=== PATIENT | male | born 1965 | race Native Hawaiian/Other Pacific Islander ===

== ENCOUNTER 2017-01-09 11:25 | Emergency (ER) | payer SELFPAY ==
[~2017-01-09] VITALS: Ht 180.3 cm; Wt 86.0 kg
[2017-01-09 11:26] VITALS: BP 133/71; PULSE 71; RESP 15; TEMP 97.6; O2SAT 97
--- NOTE | 2017-01-09 11:34 | PD ---
Physical Exam Date Seen by Provider: Jan 09, 2017 Time Seen by Provider: 11:30 Narrative 51 yowm C/O LOWER PUBIC PAIN, NAUSEA, PASSING BLOOD CLOTS WITH CRAMPS THIS AM. PT HAS HAD IT 4 TIMES OVER THE PAST SEVERAL YRS BUT NEVER SEEN. . PAIN 01/02. VS REVIEWED WAITING FOR BED PLACEMENT Data Data Last Documented VS Vital Signs Date Time Temp Pulse Resp B/P Pulse Ox O2 Delivery O2 Flow Rate FiO2 01/09/17 11:26 97.6 71 15 133/71 97 MDM Supervised Visit with JEFF: No Scripts No Active Prescriptions or Reported Meds Rodrigo Stuart Jan 09, 2017 11:33
[2017-01-09] MEDS ORDERED: SODIUM CHLORIDE 0.9% FLUSH 10 ML FLUSH IV FLUSH PRN (11:45)
[2017-01-09 12:14] LABS: AUTOMATED NEUTROPHIL # 14.1 TH/MM3 (1.8-7.7); BASOPHIL % 0.3 % (0.0-2.0); EOSINOPHIL % 0.1 % (0.0-4.0); HEMATOCRIT 50.5 % (39.0-51.0); HEMO FLAGS DIFF FINAL; MEAN CELL VOLUME 93.7 FL (80.0-100.0); MEAN CORPUSCULAR HEMOGLOBIN 31.4 PG (27.0-34.0); MEAN CORPUSCULAR HGB CONC 33.5 % (32.0-36.0); MONO % 4.8 % (0.0-8.0); NEUT % 88.8 % (16.0-70.0); PLATELET COUNT 252 TH/MM3 (150-450); RED BLOOD COUNT 5.39 MIL/MM3 (4.50-5.90); RED CELL DISTRIBUTION WIDTH 13.7 % (11.6-17.2); WHITE BLOOD COUNT 15.9 TH/MM3 (4.0-11.0)
[2017-01-09 12:21] LABS: ANION GAP 8 MEQ/L (5-15); APTT (PATIENT) 25.5 SEC (24.3-30.1); AST (GOT) 18 U/L (15-37); BICARBONATE 26.1 MEQ/L (21.0-32.0); BLOOD UREA NITROGEN 15 MG/DL (7-18); CHLORIDE 102 MEQ/L (98-107); GLOMERULAR FILTRATION RATE 70 ML/MIN (>89); INTERNATIONAL NORMALIZED RATIO 0.9 RATIO; POTASSIUM 4.4 MEQ/L (3.5-5.1); PROTHROMBIN TIME - PATIENT 10.1 SEC (9.8-11.6); SODIUM (NA) 136 MEQ/L (136-145)
[2017-01-09 12:24] LABS: ALKALINE PHOSPHATASE 75 U/L (45-117); ALT (GPT) 26 U/L (12-78); TOTAL BILIRUBIN ADULT 0.9 MG/DL (0.2-1.0)
--- NOTE | 2017-01-09 12:56 | PD ---
HPI Chief Complaint: GI Complaint Time Seen by Provider: 12:51 Travel History International Travel<30 days: No Contact w/Intl Traveler<30days: No Traveled to known affect area: No History of Present Illness HPI 51-year-old male presents to the emergency department for evaluation of lower abdominal pain, gross blood in stool with blood clots, single episode. He states that he felt fine yesterday. However, last night, he felt like he had to have a bowel movement. He says he was sitting on the toilet with sweat dripping from him. He states at some point, he had a syncopal episode and woke up on the floor with pain to his forehead. He states that he went back to bed. He woke up a few more times to try to have a bowel movement. He would get a little bit out each time. However, this morning, he went to the bathroom and had gross blood. He states he has had a bowel movement since with blood as well and blood clots. He reports lower abdominal pain. No fevers or chills. No chest pain. He states he is nauseated, but denies vomiting. He states he has had issues similar to this in the past, but has never had blood in his stool. Patient has never been seen for this in the past. Patient with history of hypertension, but is not on any prescribed medications. He reports history of hernia surgery in the past. PFSH Past Medical History Cardiovascular Problems: Yes Diminished Hearing: No Hypertension: Yes (15 YEARS AGO BUT PT STATES DOES NOT TAKE MED) Tetanus Vaccination: < 5 Years Influenza Vaccination: No Past Surgical History Abdominal Surgery: Yes (HERNIA REPAIR) Social History Alcohol Use: Yes (OCASSIONALLY) Tobacco Use: No (QUIT 25 YEARS AGO) Substance Use: Yes ([employer], [place] OCASSIONALLY) Allergies-Medications (Allergen,Severity, Reaction): Coded Allergies: No Known Allergies (Unverified , 01/09/17) Reported Meds & Prescriptions Reported Meds & Active Scripts Active Flagyl (Metronidazole) 500 Mg Tab 500 Mg PO TID 10 Days Cipro (Ciprofloxacin HCl) 500 Mg Tab 500 Mg PO BID 10 Days Lortab (Hydrocodone-Acetaminophen) 5-325 Mg Tab 1 Tab PO Q6H PRN Review of Systems Except as stated in HPI: all other systems reviewed are Neg Physical Exam Narrative GENERAL: Well-nourished, well-developed male patient afebrile., SKIN: Focused skin assessment warm/dry. HEAD: Normocephalic. Atraumatic. ENT: Mucosa pink and moist. No erythema or exudates. No uvular edema. No uvular , palatal, or tonsillar deviation. Airway patent. Nasal turbinates appear normal without nasal blood, purulent drainage or septal hematoma. Bilateral tympanic membranes are clear without erythema or perforation. EYES: No scleral icterus. No injection or drainage. NECK: Supple, trachea midline. No JVD or lymphadenopathy. CARDIOVASCULAR: Regular rate and rhythm without murmurs, gallops, or rubs. RESPIRATORY: Breath sounds equal bilaterally. No accessory muscle use. Lungs sounds are clear to auscultation. GASTROINTESTINAL: Abdomen soft and nondistended. Mild tenderness over lower abdomen. MUSCULOSKELETAL: No cyanosis, or edema. BACK: Nontender without obvious deformity. No CVA tenderness. Data Data Last Documented VS Vital Signs Date Time Temp Pulse Resp B/P Pulse Ox O2 Delivery O2 Flow Rate FiO2 01/09/17 16:01 97.9 76 16 120/78 99 01/09/17 14:57 Room Air Orders Complete Blood Count With Diff (01/09/17 11:40) Comprehensive Metabolic Panel (01/09/17 11:40) Prothrombin Time / Inr (Pt) (01/09/17 11:40) Act Partial Throm Time (Ptt) (01/09/17 11:40) Ua Includes Microscopic (01/09/17 11:40) Iv Access Insert/Monitor (01/09/17 11:40) Sodium Chloride 0.9% Flush (Ns Flush) (01/09/17 11:45) Morphine Inj (Morphine Inj) (01/09/17 13:00) Electrocardiogram (01/09/17 ) Creatine Kinase (Cpk) (01/09/17 12:48) Troponin I (01/09/17 12:48) Ct Abd/Pel W Iv Contrast(Rout) (01/09/17 ) Sodium Chlor 0.9% 1000 Ml Inj (Ns 1000 M (01/09/17 13:00) Ondansetron Inj (Zofran Inj) (01/09/17 13:00) Iohexol 350 Inj (Omnipaque 350 Inj) (01/09/17 14:26) Labs Laboratory Tests Test 01/09/17 01/09/17 11:55 15:00 White Blood Count 15.9 TH/MM3 Red Blood Count 5.39 MIL/MM3 Hemoglobin 16.9 GM/DL Hematocrit 50.5 % Mean Corpuscular Volume 93.7 FL Mean Corpuscular Hemoglobin 31.4 PG Mean Corpuscular Hemoglobin 33.5 % Concent Red Cell Distribution Width 13.7 % Platelet Count 252 TH/MM3 Mean Platelet Volume 8.7 FL Neutrophils (%) (Auto) 88.8 % Lymphocytes (%) (Auto) 6.0 % Monocytes (%) (Auto) 4.8 % Eosinophils (%) (Auto) 0.1 % Basophils (%) (Auto) 0.3 % Neutrophils # (Auto) 14.1 TH/MM3 Lymphocytes # (Auto) 1.0 TH/MM3 Monocytes # (Auto) 0.8 TH/MM3 Eosinophils # (Auto) 0.0 TH/MM3 Basophils # (Auto) 0.0 TH/MM3 CBC Comment DIFF FINAL Differential Comment Prothrombin Time 10.1 SEC Prothromb Time International 0.9 RATIO Ratio Activated Partial 25.5 SEC Thromboplast Time Sodium Level 136 MEQ/L Potassium Level 4.4 MEQ/L Chloride Level 102 MEQ/L Carbon Dioxide Level 26.1 MEQ/L Anion Gap 8 MEQ/L Blood Urea Nitrogen 15 MG/DL Creatinine 1.10 MG/DL Estimat Glomerular Filtration 70 ML/MIN Rate Random Glucose 101 MG/DL Calcium Level 9.5 MG/DL Total Bilirubin 0.9 MG/DL Aspartate Amino Transf 18 U/L (AST/SGOT) Alanine Aminotransferase 26 U/L (ALT/SGPT) Alkaline Phosphatase 75 U/L Total Creatine Kinase 125 U/L Troponin I LESS THAN 0.02 NG/ML Total Protein 8.4 GM/DL Albumin 4.5 GM/DL Urine Color YELLOW Urine Turbidity CLEAR Urine pH 5.5 Urine Specific [place] GREATER THAN 1.050 Urine Protein TRACE mg/dL Urine Glucose (UA) NEG mg/dL Urine Ketones 10 mg/dL Urine Occult Blood NEG Urine Nitrite NEG Urine Bilirubin NEG Urine Urobilinogen LESS THAN 2.0 MG/DL Urine Leukocyte Esterase NEG Urine RBC 1 /hpf Urine WBC 2 /hpf Urine Mucus FEW /lpf Microscopic Urinalysis Comment MDM Medical Decision Making Medical Screen Exam Complete: Yes Emergency Medical Condition: Yes Medical Record Reviewed: Yes Interpretation(s) Last Impressions Abdomen/Pelvis CT 01/09/17 0000 Signed Impressions: Service Date/Time: December 14:20 - CONCLUSION: 1. Mild diverticulosis with no definite inflammatory change. 2. Normal appendix. Francisco Cowan MD Differential Diagnosis Colitis versus diverticulitis versus lower GI bleed versus intracranial abnormality versus electrolytes abnormality versus anemia versus ACS Narrative Course 51-year-old male presents to the emergency department for evaluation of lower abdominal pain, gross blood in his stool with blood clots, syncopal episode. Workup was initiated in triage. CBC shows leukocytosis of 15.9. CMP shows no acute abnormality. Coags are unremarkable. UA is pending. CK and troponin are added as well as EKG. CT of the brain without contrast and CT of the abdomen/pelvis with IV contrast is ordered and pending. EKG shows SR, HR 68, no acute ST changes. CK is 125. Troponin is less than 0.02. UA is negative for acute infection. CT abdomen/pelvis shows mild diverticulosis with no definite inflammatory change ; Normal appendix. Patient declined CT of the brain. Patient will be discharged with a prescription for Flagyl and Cipro. My attending physician, Dr. Cazares is aware of all findings and agrees with plan and disposition. The patient was discharged in stable condition with instructions, including return instructions and follow up instructions. Diagnosis Primary Impression: Colitis Additional Impression: Vasovagal syncope Referrals: Obstetrician call for appointment Patient Instructions: Colitis (ED), General Instructions, Syncope (ED) Additional Instructions: Take Cipro and Flagyl as directed until gone. Do not drink alcohol while on Flagyl. Take Lortab as directed as needed for pain. Caution this can make you drowsy so do not drive after taking. Follow-up with safety counselor. [place] diet. Return to the emergency department for any acute worsening of symptoms. Med/Other Pt SpecificInfo: Prescription(s) given Scripts Metronidazole (Flagyl)500 Mg [id number] Mg PO TID 10 Days Ref 0 Prov:Rhoda Rivas 01/09/17 Ciprofloxacin (Cipro)500 Mg [id number] Mg PO BID 10 Days Ref 0 Prov:Rhoda Rivas 01/09/17 Hydrocodone-Acetaminophen (Lortab)5-325 Mg Tab1 Tab PO Q6H PRN (PAIN) #12 TAB Ref 0 Prov:Jonna Cazares DO 01/09/17 Disposition: 01 DISCHARGE HOME Condition: Stable Rhoda Rivas Jan 09, 2017 12:56
[2017-01-09] MEDS ORDERED: MORPHINE SULFATE 4 MG/ML INJ IV PUSH ONE (13:00)
[2017-01-09] MEDS ORDERED: SODIUM CHLOR 0.9% 1000 ML INJ 1,000 ML IV ONE (13:00)
[2017-01-09] MEDS ORDERED: ONDANSETRON HCL 4 MG/2 ML VIAL IV PUSH ONE (13:00)
[2017-01-09 13:11] LABS: CREATINE KINASE 125 U/L (39-308)
[2017-01-09] MEDS ORDERED: IOHEXOL 350 MG/ML 10 ML VIAL (for RAD DIAG) IV ONE (14:26)
--- NOTE | 2017-01-09 14:42 | RADRPT ---
EXAM DATE/TIME: 01/09/2017 14:20 [facility] COMPARISON: No previous studies available for comparison. INDICATIONS : Passing blood in stool. IV CONTRAST: 95 cc Omnipaque 350 (iohexol) IV ORAL CONTRAST: No oral contrast ingested. RADIATION DOSE: 9.81 CTDIvol (mGy) MEDICAL HISTORY : Hypertension. SURGICAL HISTORY : Hernia repair. ENCOUNTER: Initial ACUITY: 1 day PAIN SCALE: 0/10 LOCATION: lower abdomen TECHNIQUE: Volumetric scanning of the abdomen and pelvis was performed. Using automated exposure control and ad justment of the mA and/or kV according to patient size, radiation dose was kept as low as reasonably achievable to obtain optimal diagnostic quality images. DICOM format image data is available electro nically for review and comparison. FINDINGS: LOWER LUNGS: The visualized lower lungs are clear. LIVER: Homogeneous density without lesion. There is no dilation of the biliary tree. No calcified gallston es. There is mild hepatic steatosis. SPLEEN: Normal size without lesion. PANCREAS: Within normal limits. KIDNEYS: Normal in size and shape. There is no mass, stone or hydronephrosis. ADRENAL GLANDS: Within normal limits. VASCULAR: There is no aortic aneurysm. BOWEL/MESENTERY: No oral contrast was given limiting the sensitivity The stomach, small bowel, and colon demonstrate n o acute abnormality. There is no free intraperitoneal air or fluid. There are multiple diverticuli w ith no focal wall thickening or inflammatory change. There is a normal appendix. ABDOMINAL WALL: Within normal limits. RETROPERITONEUM: There is no lymphadenopathy. BLADDER: No wall thickening or mass. REPRODUCTIVE: Within normal limits. INGUINAL: There is no lymphadenopathy or hernia. MUSCULOSKELETAL: Within normal limits for patient age. CONCLUSION: 1. Mild diverticulosis with no definite inflammatory change. 2. Normal appendix. Francisco Cowan MD on January 09, 2017 at 14:36 Board Certified Radiologist. This report was verified electronically.
[2017-01-09 14:57] VITALS: BP 123/78; PULSE 76; RESP 17; TEMP 97.8; O2SAT 99
[2017-01-09] MEDS ORDERED: HYDR-3533 PO (14:58)
[2017-01-09] MEDS ORDERED: CIPR-9 PO (15:02)
[2017-01-09] MEDS ORDERED: METR-1 PO (15:02)
[2017-01-09 15:40] LABS: BLOOD, URINE NEG (NEG); GLUCOSE,URINE NEG (NEG); KETONE, URINE 10 mg/dL (NEG); MUCUS URINE FEW /lpf (OCC); NITRITE,URINE NEG (NEG); PH, URINE 5.5 (5.0-8.5); URINE COLOR YELLOW (YELLW/STRAW)
[2017-01-09 16:01] VITALS: BP 120/78; TEMP 97.9
--- NOTE | 2017-01-10 14:37 | EKG ---
Date Performed: 01/09/2017 Time Performed: 13:16:31 PTAGE: 51 years EKG: Sinus rhythm NORMAL ECG NO PREVIOUS TRACING DOCTOR: Nick Villafana Interpretating Date/Time 01/10/2017 14:34:33
== END 2017-01-09 16:04 | disposition home or self-care (01) ==
LOC: NEPD 11:25
DX: K52.9 Noninfective gastroenteritis and colitis, unspecified (principal); R55 Syncope and collapse; D72.829 Elevated white blood cell count, unspecified; K57.90 Diverticulosis of intestine, part unspecified, without perforation or abscess without bleeding; I10 Essential (primary) hypertension; Z79.899 Other long term (current) drug therapy
CPT/HCPCS: 74177; 80053; 81001; 82550; 84484; 85025; 85610; 85730; 93005; 96361; 96374; 96375; 99285; J2270; J2405; J7030; Q9967